=== PATIENT | female | born 1985 | race Caucasian/White ===

== ENCOUNTER 2018-03-22 20:01 | Emergency (ER) | payer OTHER ==
[~2018-03-22] VITALS: Ht 160 cm; Wt 63.5 kg
[2018-03-22 20:25] LABS: URINE BILIRUBIN NEGATIVE (Negative); URINE BLOOD 3+ (Negative); URINE CLARITY CLEAR; URINE COLOR YELLOW; URINE GLUCOSE-RANDOM* NEGATIVE (Negative); URINE KETONES NEGATIVE (Negative); URINE LEUKOCYTES-REFLEX NEGATIVE (Negative); URINE NITRITE-REFLEX NEGATIVE (Negative); URINE PROTEIN (DIPSTICK) NEGATIVE (Negative); URINE SPECIFIC GRAVITY <= 1.005 (1.005-1.035); URINE UROBILINOGEN 0.2 E.U./dl (0.2-1.0)
[2018-03-22] MEDS ORDERED: WELLBUTRIN XL150 MG PO (20:43)
[2018-03-22 20:51] LABS: SQUAMOUS 4-10 Moderate /LPF (0-3)
[2018-03-22 20:52] LABS: BACTERIA-REFLEX 1-9 Few /HPF (None Seen); CASTS None Seen /LPF (None Seen); CRYSTALS None Seen /LPF (None Seen); URINE RBC 3-10 Few /HPF (0-2); URINE WBC-REFLEX 0-5 Rare /HPF (0-5)
[2018-03-22 21:18] LABS: BASOPHILS 0.6 % (0.0-2.0); EOSINOPHILS 0.9 % (0.0-3.0); HEMATOCRIT 39.1 % (37.0-47.0); HEMOGLOBIN 13.9 gm/dL (12.0-15.0); LYMPHOCYTES 36.3 % (24.0-44.0); MCH 30.9 pg (26.0-34.0); MCHC 35.5 g/dL (28.0-37.0); PLATELET COUNT 247 thou/uL (150-400); POLYS 57.2 % (36.0-66.0); RBC 4.49 mil/uL (4.20-5.00); RDW 12.8 % (10.5-14.5); WBC 8.7 thou/uL (4.0-11.0)
[2018-03-22 21:27] LABS: CALCIUM 9.2 mg/dL (8.5-10.1); CREATININE 0.8 mg/dL (0.6-1.0); POTASSIUM 3.8 mmol/L (3.5-5.1)
[2018-03-22] MEDS ORDERED: IBUPROFEN 800800 M1 PO (22:20)
[2018-03-22] MEDS ORDERED: NORCO 5-325 TA1 EACH PO (22:20)
[2018-03-22] MEDS ORDERED: ZOFRAN ODT4 MG PO (22:20)
[2018-03-22] MEDS ORDERED: SENNA-DOCUSATE1 EAC1 PO (22:20)
[2018-03-22] MEDS ORDERED: FLOMAX0.4 MG PO (22:20)
[2018-03-22 22:54] VITALS: BP 141/83
== END 2018-03-22 22:54 | disposition home or self-care (01) ==
LOC: ER 20:01
PROVIDERS: Emergency Medicine
DX: N20.0 Calculus of kidney (principal); Z98.890 Other specified postprocedural states; Z90.49 Acquired absence of other specified parts of digestive tract